=== PATIENT | male | born 1950 | race Caucasian/White ===

== ENCOUNTER 2025-09-26 08:55 | Day surgery (SDC) | payer MEDICARE ==
[2025-09-22 09:26] LABS: MEAN PLATELET VOLUME 9.0 FL (7.4-10.4); RED CELL DISTRIBUTION WIDTH 13.7 % (11.5-14.5)
[2025-09-22 09:37] LABS: APTT 30 SECONDS (22-32); INR 1.1 INR
[2025-09-22 10:03] LABS: CHOL/HDL RATIO 3.1 (0.00-4.99); CREATININE 0.85 MG/DL (0.60-1.10); LDL CHOLESTEROL 106 MG/DL (50-100); TOTAL CARBON DIOXIDE 31.8 MMOL/L (24-32); eGFR 88 ML/MIN
[2025-09-26] VITALS (7 sets, daily range): BP systolic 138–160; BP diastolic 90–109; PULSE 48–58; RESP 8–12; TEMP 97.7; O2SAT 92–98
[~2025-09-26] VITALS: Ht 180.3 cm; Wt 91.7 kg
[~2025-09-26 08:55] MED LIST: ATOR20TA66 PO; CELE-389 PO; DILT360C25 PO; FLEC50TA PO; FLUO20CA41 PO; METO-539 PO; MULT-620 PO; OMEP40CA21 PO; RIVA20TA PO
[2025-09-26] MEDS ORDERED: fentaNYL/PF 50MCG/1 ML 2ML syringe IV ONE (09:30)
[2025-09-26] MEDS ORDERED: MIDAZolam 1mg/ml 10ml vial IV ONE (09:30)
[2025-09-26] MEDS: normal saline 1000ml 1,000 ML IV SCH (09:36)
[2025-09-26] MEDS ORDERED: atropine 0.1mg/ml 10ml syringe ONE (11:53)
[2025-09-26] MEDS ORDERED: amiodarone 50MG/ML inj IV ONE (11:53)
[2025-09-26] MEDS ORDERED: fentaNYL/PF 50MCG/1 ML 2ML syringe ONE ×2 (11:53→13:03)
[2025-09-26] MEDS ORDERED: midazolam 1 mg/ML 2ml injection ONE ×3 (11:53→13:04)
--- NOTE | 2025-09-26 13:49 | ELECTROCARDIOGRAPH REPORT ---
[facility] Test Date: 2025-09-26 Test Time: 13:44:57 Pat Name: TRICE MCNEIL Department: [facility] Patient ID: [facility]-[id number] Room: Gender: M Reference Data Expert: BENITO : 1950 Requested By: HERRERA YEH Order Number: [id number] Reading MD: Dr. ISMAEL [place] Measurements Intervals Bieber Rate: 51 P: 68 GA: 258 QRS: -2 QRSD: 123 T: 60 QT: 460 QTc: 424 Interpretive Statements Sinus rhythm Prolonged GA interval IVCD, consider atypical RBBB Electronically Signed On 09-26-2025 18:50:[address] ISMAEL [place] Please click the below link to view image of tracing.
== END 2025-09-26 14:25 | disposition home or self-care (01) ==
LOC: SSTAY O 08:55
PROVIDERS: ATTEND Student in an Organized Health Care Education/Training Program
DX: I48.91 Unspecified atrial fibrillation (principal); R94.31 Abnormal electrocardiogram [ECG] [EKG]; I45.10 Unspecified right bundle-branch block; I10 Essential (primary) hypertension; E78.00 Pure hypercholesterolemia, unspecified; G47.33 Obstructive sleep apnea (adult) (pediatric); Z79.01 Long term (current) use of anticoagulants; Z79.899 Other long term (current) drug therapy; Z88.8 Allergy status to other drugs, medicaments and biological substances
CPT/HCPCS: 36415; 80048; 80061; 83695; 85025; 85610; 85730; 92960; 93005; J2250; J3010; J7030; Z7610; 99152; J0282; J0461